=== PATIENT | male | born 1960 | race African-American/Black ===

== ENCOUNTER 2018-05-18 17:16 | Emergency (ER) | payer OTHER ==
[2018-05-18] MEDS: SOD CHLORIDE 0.9% 1,000 ML IV (17:38)
[2018-05-18 18:13] LABS: ANION GAP 16 (5-13); BLOOD UREA NITROGEN 7 mg/dl (7-20); CALCIUM 9.6 mg/dl (8.4-10.2); CARBON DIOXIDE 25 mmol/L (21-31); CHLORIDE 100 mmol/L (97-110); CREATININE 0.77 mg/dl (0.61-1.24); Estimated GFR > 60 mL/min (>60); GLUCOSE 95 mg/dl (70-220); SODIUM 141 mmol/L (135-144)
[2018-05-18 18:18] LABS: HEMATOCRIT 39.7 % (42.0-52.0); HEMOGLOBIN 13.6 g/dl (14.0-18.0); MEAN CORPUSCULAR HEMOGLOBIN 33.5 pg (29.0-33.0); MEAN CORPUSCULAR HGB CONC 34.3 g/dl (32.0-37.0); MEAN CORPUSCULAR VOLUME 97.8 fl (82.0-101.0); PLATELET COUNT 174 10^3/UL (140-415); RED BLOOD COUNT 4.06 10^6/ul (4.70-6.10); RED CELL DISTRIBUTION WIDTH 13.8 % (11.5-14.5)
[2018-05-18 18:18] LABS: WHITE BLOOD COUNT 5.7 10^3/ul (4.8-10.8)
[2018-05-18 18:22] LABS: ADD MAN DIFF? YES
[2018-05-18 18:24] LABS: TROPONIN-I < 0.012 ng/ml (0.000-0.120)
[2018-05-18 19:27] LABS: ANISOCYTOSIS 1+ (0-0); BAND NEUTROPHILS #M 0.2 10^3/ul (0.0-0.6); BAND NEUTROPHILS % (M) 4 % (0-4); EOSINOPHILS % (M) 1 % (0-7); LYMPHOCYTES #M 2.6 10^3/ul (0.8-2.9); LYMPHOCYTES % (M) 47 % (15-51); METAMYELOCYTES %M 1 % (0-0); MONOCYTE #M 0.6 10^3/ul (0.3-0.9); MONOCYTES % (M) 12 % (0-11); PLATELET ESTIMATE NORMAL; POLYCHROMASIA 3+ (0-0); REACTIVE LYMPHOCYTES% (M) 1 % (0-0); SEG NEUT #M 1.9 10^3/ul (1.6-7.5); SEGMENTED NEUTROPHILS (M) % 34 % (39-77); SMUDGE%M 25 % (0-0)
== END 2018-05-18 20:25 | disposition home or self-care (01) ==
LOC: E/R 20:25
DX: R55 Syncope and collapse (principal)
CPT/HCPCS: 36415; 71045; 80048; 82962; 84484; 85025; 93005; 99285-25